=== PATIENT | male | born 1945 | race Hispanic/Latino ===

== ENCOUNTER → 2017-10-26 | Outpatient (CLI) | payer MEDICARE ==
[~2017-10-26] MED LIST: ADVAIR 500/501 EA INH; AZITHROMYCIN250 MG PO; CIPROFLOXACIN750 MG PO; COMBIVENT INH14.7 GM INH; HYDROCHLOROTH12.5 M1 PO; LAMISIL250 MG PO; LOSARTAN POTASS25 MG PO; PROAIR HFA INH8.5 GM PO; SINGULAIR10 MG PO
--- NOTE | 2017-10-26 12:30 | Diagnostic Imaging Report ---
PROCEDURE:US RETROPERITONEAL ( KIDNEY ). COMPARISON:Patients [facility], US, US RENAL (KIDNEY), 07/27/2012, 17:44. Patients [facility], CT, CT ABDOMEN/PELVIS WO, 09/07/2016, 9:49. INDICATIONS:Asymptomatic Microscopic Hematuria TECHNIQUE: Cisneros scale and color Doppler ultrasound FINDINGS: Right kidney: 12.1 x 5.4 x 7 cm. Cortical thickness 1.6 cm Left kidney: 13.2 x 6.8 x 6.9 cm. Cortical thickness 2 cm Both kidneys demonstrate normal parenchymal echogenicity. Cysts: Right inferior, simple 4.5 x 2.5 x 2.5 cm Left superior, simple 5.3 x 4.9 x 5 cm Left mid, simple 3 x 3.2 x 3.7 cm Survey views of the urinary bladder are normal. Ureteral jets bilaterally. Prostate volume: 30 mL (2.8 x 2.7 x 4 cm) CONCLUSION: Simple renal cysts. Otherwise, normal kidneys. Dictated by: Charlie Rose M.D. on 10/26/2017 at 12:30 Electronically approved by: Charlie Rose M.D. on 10/26/2017 at 12:30
== END ==
LOC: US 11:14
PROVIDERS: ATTEND Urology
DX: N28.1 Cyst of kidney, acquired (principal)
CPT/HCPCS: 76770